=== PATIENT | male | born 1940 | race Caucasian/White ===

== ENCOUNTER → 2018-01-01 | Outpatient (CLI) | payer OTHER | LOC: FIMAGING 09:09 | PROVIDERS: ATTEND Psychiatry & Neurology Neurology | DX: R26.9 Unspecified abnormalities of gait and mobility (principal); G60.3 Idiopathic progressive neuropathy; R90.82 White matter disease, unspecified ==

== ENCOUNTER 2018-02-02 21:18 | Emergency (ER) | payer OTHER ==
[2018-02-02 21:27] VITALS: BP 158/114
--- NOTE | 2018-02-02 21:43 | EDPHY ---
H & P Stated Complaint: Tumor removed from bladder removed 1100, brock bag removed by patient Time Seen by Provider: 02/02/18 21:42 HPI/ROS: HPI: This is a 77-year-old male who presents with Chief Complaint: Tumor removed from bladder removed 1100, brock bag removed by patient Location: Quality: Brock malfunction Duration: 1 hr prior to arrival Signs and Symptoms: no fever, no nausea, no vomiting, no hematemesis, no blood in stool, no abdominal bloating, no diarrhea, no back pain, no urinary symptoms , no testicular/groin pain, no indigestion, no chest pain, no shortness of breath Timing: Acute Severity: Mild Context: History of PE and DVT and takes Coumadin presents with complaints of disconnecting his Brock catheter from his leg bag approximately 1 hr prior to arrival. He has been holding the tubing in his hand above his abdomen to prevent urine from coming out of the tube. Today Dr. Shahida Houser, removed a tumor from his bladder and placed a Brock catheter. He has a follow-up appointment this Wednesday. Patient reports that he does not feel any pain, denies hematuria, no nausea, no vomiting. Modifying Factors: None Comment: ROS: A comprehensive 10 system review of systems is otherwise negative aside from elements mentioned in the history of present illness. MEDICAL/SURGICAL/SOCIAL HISTORY: Medical history: PE/DVT/DIABETES TYPE II/HIGH CHOLESTEROL, CVA Surgical history: Denies Social history: Retired. Never smoked. Family history noncontributory. CONSTITUTIONAL: Extremely polite and cooperative elderly white male, awake and alert, no obvious distress HEENT: Atraumatic and normocephalic, PERRL, EOMI. Nares patent; no rhinorrhea; no nasal mucosal edema. Tympanic membranes clear. Oropharynx clear, no exudate and moist pink mucosa. Airway patent. No lymphadenopathy. No meningismus. Cardiovascular: Normal S1/S2, regular rate, regular rhythm, without murmur rub or gallop. PULMONARY/CHEST: Symmetrical and nontender. Clear to auscultation bilaterally. Good air movement. No accessory muscle usage. ABDOMEN: Soft, nondistended, nontender, no rebound, no guarding, no peritoneal signs, no masses or organomegaly. No CVAT. Male : circumcised penis, bilateral descended testes, no testicular swelling, no testicular masses, no penile discharge, no lesions. Brock tubing present in urethra. EXTREMITIES: 2/2 pulses, strength 5/5, no deformities, no clubbing, no cyanosis or edema. NEUROLOGICAL: no focal neuro deficits. GCS 15. SKIN: Warm and dry, no erythema. no rash. Good capillary refill. Source: Patient Exam Limitations: No limitations - Personal History Current Tetanus Diphtheria and Acellular Pertussis (TDAP): Yes - Medical/Surgical History Hx Asthma: No Hx Chronic Respiratory Disease: No Hx Diabetes: Yes Hx Cardiac Disease: No Hx Renal Disease: No Hx Cirrhosis: No Hx Alcoholism: No Hx HIV/AIDS: No Hx Splenectomy or Spleen Trauma: No Other PMH: PE/DVT/DIABETES TYPE II/HIGH CHOLESTEROL, CVA - Social History Smoking Status: Never smoked Constitutional: Initial Vital Signs Temperature (C) 36.5 C 02/02/18 21:24 Heart Rate 97 02/02/18 21:24 Respiratory Rate 18 02/02/18 21:24 Blood Pressure 158/114 H 02/02/18 21:24 O2 Sat (%) 94 02/02/18 21:24 O2 Delivery Mode Room Air Allergies/Adverse Reactions: No Known Allergies Allergy (Unverified 08/30/15 13:27) Home Medications: Medication Instructions Recorded Aspirin 81mg (OTC) 08/30/15 Atorvastatin Calcium 08/30/15 METHYLPHENIDATE HCL 08/30/15 Metformin HCl 08/30/15 Warfarin Sodium 08/30/15 Medical Decision Making ED Course/Re-evaluation: Vital signs reviewed and stable. Patient did not pull his Brock catheter out of his bladder but simply disconnected the tubing from his leg bag. Patient is passing urine through the tubing without difficulty. Nursing staff educated patient reattached tubing and another leg bag. Patient was instructed to follow up with Dr. Houser on Wednesday. This patient was seen under the supervision of my secondary supervising physician. I evaluated care for this patient independently. Discussed this patient with Dr. Bolden. Differential Diagnosis: Differential diagnosis includes Brock malfunction. Departure - Departure Disposition: Home, Routine, Self-Care Clinical Impression: Brock catheter problem Qualifiers: Encounter type: initial encounter Qualified Code(s): T83.9XXA - Unspecified complication of genitourinary prosthetic device, implant and graft, initial encounter Condition: Good Instructions: Brock Catheter Placement and Care (ED) Referrals: Yuriy Olivo MD [Primary Care Provider] - As per Instructions Donavon Houser MD [Medical Doctor] - 02/04/18
== END 2018-02-02 22:02 | disposition home or self-care (01) ==
DX: Z46.6 Encounter for fitting and adjustment of urinary device (principal); Z98.890 Other specified postprocedural states

== ENCOUNTER 2018-02-03 03:14 | Emergency (ER) | payer OTHER ==
--- NOTE | 2018-02-03 03:27 | EDPHY ---
H & P Stated Complaint: L testicular and groin pain x30 min Time Seen by Provider: 02/03/18 03:24 HPI/ROS: Chief Complaint: Left abdominal pain HPI: 77-year-old male had trans urethral bladder surgery for bladder cancer done yesterday by Dr. Houser at [facility]. Patient began having severe left lower abdominal cramping this morning. Patient feels like he pulled a muscle in his left lower abdomen. He was seen here earlier with complications from his Lyle catheter but he has not have any difficulty since that time. No fevers or chills. His leg bag has been draining. Pain at worst is an 8/10. Right now it is currently a 6/10. No fevers or chills. No nausea or vomiting or diarrhea. ROS: 10 systems were reviewed and were negative except those elements noted in the HPI. PMH: Bladder cancer Social History: No smoking, no alcohol, no recreational drug use Family History: non-contributory Physical Exam: Gen: Awake, Alert, No Distress HEENT: Nose: no rhinorrhea Eyes: PERRLA, EOMI Mouth: Moist mucosa Neck: Supple, no JVD Chest: nontender, lungs clear to auscultation Heart: S1, S2 normal, no murmur Abd: Soft, patient has tenderness no left lower quadrant with voluntary guarding , possible abdominal wall defect but no masses Back: no CVA tenderness, no midline tenderness Ext: no edema, non-tender Skin: no rash Neuro: CN II-XII intact, Sensation grossly intact, Strength 5/5 in bilateral upper and lower extremities - Personal History Current Tetanus/Diphtheria Vaccine: Yes - Medical/Surgical History Hx Asthma: No Hx Chronic Respiratory Disease: No Hx Diabetes: Yes Hx Cardiac Disease: No Hx Renal Disease: No Hx Cirrhosis: No Hx Alcoholism: No Hx HIV/AIDS: No Hx Splenectomy or Spleen Trauma: No Other PMH: PE/DVT/DIABETES TYPE II/HIGH CHOLESTEROL, CVA,. bladder sx for tumor removal 02/02 - Social History Smoking Status: Never smoked Constitutional: Initial Vital Signs Temperature (C) 36.8 C 02/03/18 03:17 Heart Rate 81 02/03/18 03:17 Respiratory Rate 20 02/03/18 03:17 Blood Pressure 142/110 H 02/03/18 03:17 O2 Sat (%) 94 02/03/18 03:17 O2 Delivery Mode Room Air Allergies/Adverse Reactions: No Known Allergies Allergy (Unverified 08/30/15 13:27) Home Medications: Medication Instructions Recorded Aspirin 81mg (OTC) 08/30/15 Atorvastatin Calcium 08/30/15 METHYLPHENIDATE HCL 08/30/15 Metformin HCl 08/30/15 Warfarin Sodium 08/30/15 Medical Decision Making - Diagnostics Imaging Results: CT scan them in bowel pelvis shows some mildly dilated loops of distal small bowel consistent with a possible enteritis or perhaps an early small-bowel obstruction. This could also be secondary to the anesthesia that the patient had yesterday. Study interpreted by Dr. Barrett. Imaging: Discussed imaging studies w/ call or contact centre operator Radiologist ED Course/Re-evaluation: Patient is improved, abdomen is soft and benign. CT scan consistent with probably an ileus secondary to his anesthesia but cannot rule out an early partial small-bowel obstruction. Patient is comfortable here. I have offered him admission to ensure that his symptoms resolved. He does not wish to stay in the hospital prefer to go home. He states he has not had a bowel movement in 4 days. I have encouraged him to return emergency department for any concerns. - Data Points Laboratory Results: Laboratory Results 02/03/18 03:35 02/03/18 03:35 02/03/18 02/03/18 03:35 03:35 WBC 14.99 10^3/uL H 10^3/uL (3.80-9.50) RBC 4.68 10^6/uL 10^6/uL (4.40-6.38) Hgb 15.2 g/dL g/dL (13.7-17.5) Hct 43.6 % % (40.0-51.0) MCV 93.2 fL fL (81.5-99.8) MCH 32.5 pg pg (27.9-34.1) MCHC 34.9 g/dL g/dL (32.4-36.7) RDW 13.2 % % (11.5-15.2) Plt Count 250 10^3/uL 10^3/uL (150-400) MPV 8.7 fL fL (8.7-11.7) Neut % (Auto) 89.2 % H % (39.3-74.2) Lymph % (Auto) 4.9 % L % (15.0-45.0) [place] % (Auto) 5.3 % % (4.5-13.0) Eos % (Auto) 0.1 % L % (0.6-7.6) Baso % (Auto) 0.1 % L % (0.3-1.7) Nucleat RBC Rel Count 0.0 % % (0.0-0.2) Absolute Neuts (auto) 13.37 10^3/uL H 10^3/uL (1.70-6.50) Absolute Lymphs (auto) 0.73 10^3/uL L 10^3/uL (1.00-3.00) Absolute Monos (auto) 0.79 10^3/uL 10^3/uL (0.30-0.80) Absolute Eos (auto) 0.02 10^3/uL L 10^3/uL (0.03-0.40) Absolute Basos (auto) 0.02 10^3/uL 10^3/uL (0.02-0.10) Absolute Nucleated RBC 0.00 10^3/uL 10^3/uL (0-0.01) Immature Gran % 0.4 % % (0.0-1.1) Immature Gran # 0.06 10^3/uL 10^3/uL (0.00-0.10) Sodium 137 mEq/L mEq/L (135-145) Potassium 4.9 mEq/L mEq/L (3.3-5.0) Chloride 102 mEq/L mEq/L (97-110) Carbon Dioxide 22 mEq/l mEq/l (22-31) Anion Gap 13 mEq/L mEq/L (8-16) BUN 31 mg/dL H mg/dL (7-23) Creatinine 1.5 mg/dL H mg/dL (0.7-1.3) Estimated GFR 45 Glucose 206 mg/dL H mg/dL (70-100) Calcium 10.0 mg/dL mg/dL (8.5-10.4) Medications Given: Discontinued Medications Sodium Chloride (Ns) 1,000 mls @ 0 mls/hr IV ONCE ONE; Wide Open PRN Reason: Protocol Stop: 02/03/18 04:09 Last Admin: 02/03/18 04:32 Dose: 1,000 mls Departure - Departure Disposition: Home, Routine, Self-Care Clinical Impression: Constipation Condition: Good Instructions: Constipation (ED) Additional Instructions: Make sure to drink at least eight 8 oz glasses of water a day. You may take MiraLax daily according to package instructions. If you feel constipated drink 1/2 bottle of magnesium citrate. Wait 1-2 hours. If you do not have a bowel movement after that time drink the 2nd half of the bottle. If you continues to be constipated you may use a Fleet's enema, available over- the-counter. Follow up with primary care physician in 2-3 days for further evaluation. Follow up with urologist as scheduled. Return to the emergency department for increasing abdominal pain, nausea vomiting, fevers, chills, or any other concerns. Referrals: Yuriy Olivo MD [Primary Care Provider] - As per Instructions
[2018-02-03 03:43] LABS: PLATELET COUNT 250 10^3/uL (150-400)
[2018-02-03] MEDS ORDERED: IOPAMIDOL (ISOVUE-300) 100 ML BTL ONE (03:45)
[2018-02-03] MEDS ORDERED: NS 1,000 ML IV ONE (04:08)
[2018-02-03 05:18] VITALS: BP 147/89
== END 2018-02-03 05:24 | disposition home or self-care (01) ==
LOC: EDUNIT#
DX: K59.00 Constipation, unspecified (principal); E86.9 Volume depletion, unspecified; C67.9 Malignant neoplasm of bladder, unspecified; E11.9 Type 2 diabetes mellitus without complications; Z98.890 Other specified postprocedural states
CPT/HCPCS: 74177; 96360; 99285; Q9967

== ENCOUNTER 2018-04-04 05:40 | Day surgery (SDC) | payer OTHER ==
[2018-04-04] MEDS ORDERED: LIDOCAINE 1% 2 ML INJ ID PRN (05:52)
[2018-04-04] MEDS ORDERED: LR 1,000 ML IV ONE (05:52)
[2018-04-04] MEDS ORDERED: LIDO/EPI 1% **for epidural** 30 ML SDV ONE (06:47)
[2018-04-04] MEDS ORDERED: BUPIVACAINE/EPI 0.5% 30 ML SDV ONE (06:47)
[2018-04-04] MEDS ORDERED: MIDAZOLAM 2 MG/2 ML VIAL IVP ONE (06:57)
--- NOTE | 2018-04-04 06:57 | PDANEPAE ---
ANE History of Present Illness R port placement ANE Past Medical History - Cardiovascular History Hx Hypertension: No Hx Arrhythmias: No Hx Chest Pain: No Hx Coronary Artery / Peripheral Vascular Disease: No Hx CHF / Valvular Disease: No Hx Palpitations: No - Pulmonary History Hx COPD: No Hx Asthma/Reactive Airway Disease: No Hx Recent Upper Respiratory Infection: No Hx Oxygen in Use at Home: No Hx Sleep Apnea: No Sleep Apnea Screening Result - Last Documented: Negative - Neurologic History Hx Cerebrovascular Accident: Yes Hx Seizures: No Hx Dementia: No Neurologic History Comment: 2014 CVA small resolved - Endocrine History Hx Diabetes: Yes Endocrine History Comment: diabetes - Renal History Hx Renal Disorders: No - Liver History Hx Hepatic Disorders: No - Neurological & Psychiatric Hx Hx Neurological and Psychiatric Disorders: Yes 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 - Cancer History Hx Cancer: Yes Cancer History Comment: bladder cancer - Congenital Disorder History Hx Congenital Disorders: No - GI History Hx Gastrointestinal Disorders: No - Other Health History Other Health History: left clavicle fx - Surgical History Prior Surgeries: left and right hip replacement, left shoulder replacement, right shoulder RCR, ileocecal valve surgery age 4 ANE Review of Systems Review of systems is: negative Review of Systems: - Exercise capacity METS (RN): 4 METS ANE Patient History - Allergies Allergies/Adverse Reactions: No Known Allergies Allergy (Unverified 08/30/15 13:27) - Home Medications Home medications: home medication list seen and reviewed Home Medications: Aspirin 81mg (OTC) 08/30/15 [Last Taken 04/03/18 10:00] METHYLPHENIDATE HCL 08/30/15 [Last Taken 04/03/18 10:00] Metformin HCl 08/30/15 [Last Taken 04/03/18 20:00] Warfarin Sodium 08/30/15 [Last Taken 03/30/18] Carbidopa-Levo 10-100 mg Odt 04/04/18 [Last Taken 04/03/18 20:00] Tamsulosin HCl 04/04/18 [Last Taken 04/03/18 20:00] buPROPion 04/04/18 [Last Taken 04/03/18 10:00] - NPO status NPO Status: no food or drink >8 hours NPO Since - Liquids (Date): 04/03/18 NPO Since - Liquids (Time): 23:00 NPO Since - Solids (Date): 04/03/18 NPO Since - Solids (Time): 21:00 - Anes Hx Anes Hx: no prior problems - Smoking Hx Smoking Status: Never smoked - Family Anes Hx Family Anes Hx: none Family Hx Anesthesia Complications: none ANE Labs/Vital Signs - Vital Signs Vital Signs: reviewed preoperatively; see RN documention for details Blood Pressure: 153/80 Heart Rate: 70 Respiratory Rate: 10 O2 Sat (%): 93 Height: 170.18 cm Weight: 66.224 kg ANE Physical Exam - Airway Neck exam: FROM Mallampati Score: Class 2 Mouth exam: normal dental/mouth exam - Pulmonary Pulmonary: no respiratory distress - Cardiovascular Cardiovascular: regular rate and rhythym - ASA Status ASA Status: III ANE Anesthesia Plan Total IV Anesthesia: Yes
--- NOTE | 2018-04-04 07:02 | PDHPUP ---
History & Physical Update H&P update statement: This history and physical update is based on an assessment of the patient which was completed after admission or registration (within 24 hours), but prior to the surgery/procedure. H&P update: H&P reviewed & patient examined, no change in patient's condition since H&P completed
--- NOTE | 2018-04-04 07:03 | POSTOPPROG ---
Post Op Note Date of Operation: 04/04/18 Surgeon: Goldy Aceves Anesthesiologist: Wilfredo Vasquez Anesthesia: IV Sedation Pre-op Diagnosis: Bladder cancer Post-op Diagnosis: Same Procedure: RIJ port with US and fluoro guidance Inf/Abcess present in the surg proc area at time of surgery?: No EBL: Minimal Complications: no immediate
[2018-04-04 07:04] LABS: INR 1.15 (0.83-1.16); PROTIME(PATIENT) 14.9 SEC (12.0-15.0)
[2018-04-04] MEDS ORDERED: PROPOFOL/EMULSION 500 MG/50 ML BOTTLE IV ONE (07:15)
[2018-04-04] MEDS ORDERED: LIDOCAINE 2% 100 MG/5 ML SYR ONE (07:16)
[2018-04-04] MEDS ORDERED: MEPERIDINE 25 MG/0.5 ML AMP IVP PRN (07:42)
[2018-04-04] MEDS ORDERED: fentaNYL 100 MCG/2 ML INJ IVP PRN (07:42)
[2018-04-04] MEDS ORDERED: ONDANSETRON 4 MG/2 ML VIAL IVP PRN (07:42)
[2018-04-04] MEDS ORDERED: HYDROCODONE/APAP 5/325 TAB PO PRN (07:42)
[2018-04-04] MEDS ORDERED: HYDROmorphONE/DILAUDID 2 MG/ML INJ IVP PRN (07:42)
[2018-04-04] MEDS ORDERED: LABETALOL HCL 20 MG/4 ML INJ IVP PRN (07:42)
[2018-04-04] MEDS ORDERED: DEXAMETHASONE 4 MG/ML VIAL IVP PRN (07:42)
[2018-04-04] MEDS ORDERED: ACETAMINOPHEN 500 MG TAB PO PRN (07:42)
[2018-04-04] MEDS ORDERED: oxyCODONE IR 5 MG TAB PO PRN (07:42)
[2018-04-04] MEDS ORDERED: NALOXONE HCL 0.4 MG/ML INJ IVP PRN (07:42)
--- NOTE | 2018-04-04 07:42 | POSTANESTH ---
Post Anesthetic Evaluation Cardiovascular Status: Similar to Pre-Op Cond Respiratory Status: Normal, Stable, Similar to Pre-op Cond. Level of Consciousness/Mental Status: Can Participate in Eval, Mildly Sleepy, Arousable Pain Control: Adequate, Prn Tx Ordered Nausea/Vomiting Control: Adequate, Prn Tx Ordered Complications Possibly Related to Anesthesia: None Noted
[2018-04-04 08:36] VITALS: BP 142/99
--- NOTE | 2018-04-04 09:12 | GOP ---
DATE OF OPERATION: 04/04/2018 SURGEON: Goldy Aceves MD ANESTHESIA: MAC. ANESTHESIOLOGIST: Dr. Vasquez. PREOPERATIVE DIAGNOSIS: Bladder cancer. POSTOPERATIVE DIAGNOSIS: Bladder cancer. PROCEDURE PERFORMED: Right internal jugular single-lumen PowerPort placement with ultrasound and fluoroscopic guidance. DESCRIPTION OF PROCEDURE: 77-year-old male with bladder cancer. He is undergoing a port placement at this time. Monitored anesthesia care was started. The right neck and chest were infiltrated with 1% lidocaine, 0.5% Marcaine. The jugular vein was directly punctured using ultrasound guidance. A guidewire passed into the atrium, which was confirmed using fluoroscopy. A counterincision was made on the chest wall. The low-profile port was tunneled cephalad. The vein was dilated, and the catheter passed in the atrial junction without resistance. There was good venous flow with blood return on port withdrawal. There was smooth contouring with the neck as well as satisfactory terminal positioning above the heart. The wounds were closed in layers with absorbable suture followed by Dermabond. The port was left accessed for subsequent chemotherapy to ensue later this morning. The patient was taken to recovery room awake uneventfully. /[id number]/MODL MTDD
== END 2018-04-04 08:46 | disposition home or self-care (01) ==
LOC: FSGY 05:40
PROVIDERS: ATTEND Surgery
PROC: 0JH60XZ Insertion of Tunneled Vascular Access Device into Chest Subcutaneous Tissue and Fascia, Open Approach (ICD-10-PCS; principal; 2018-04-04 07:15)
PROC: B513YZA Fluoroscopy of Right Jugular Veins using Other Contrast, Guidance (ICD-10-PCS; principal; 2018-04-04 07:15)
PROC: 05HM33Z Insertion of Infusion Device into Right Internal Jugular Vein, Percutaneous Approach (ICD-10-PCS; principal; 2018-04-04 07:15)
DX: C67.3 Malignant neoplasm of anterior wall of bladder (principal); E11.40 Type 2 diabetes mellitus with diabetic neuropathy, unspecified; G25.81 Restless legs syndrome; N40.2 Nodular prostate without lower urinary tract symptoms; F32.9 Major depressive disorder, single episode, unspecified; Z79.01 Long term (current) use of anticoagulants; Z86.711 Personal history of pulmonary embolism; Z86.73 Personal history of transient ischemic attack (TIA), and cerebral infarction without residual deficits; Z86.718 Personal history of other venous thrombosis and embolism; Z96.643 Presence of artificial hip joint, bilateral; Z96.612 Presence of left artificial shoulder joint
CPT/HCPCS: C1788; J1642; J2001; J2704